=== PATIENT | female | born 1995 | race Caucasian/White ===

== ENCOUNTER 2017-04-10 10:49 | Emergency (ER) | payer BC, OTHER ==
--- NOTE | 2017-04-10 11:26 | ED ---
Abdominal Pain HPI - General Chief Complaint: Abdominal Pain Stated Complaint: constipation Time Seen by Provider: 04/10/17 11:08 Source: patient, RN notes reviewed Mode of arrival: ambulatory Limitations: no limitations - History of Present Illness Initial Comments: Patient is a 21-year-old female , presents to the emergency room for evaluation constipation. Patient states she is about 8 weeks . Patient states she has not followed up with [facility] yet. Patient states she hasn 't had a bowel movement in about a week. Patient states she's tried every over- the-counter remedy. Patient states she has drank magnesium citrate, prune juice , water, fiber with no relief of symptoms. Patient states she's getting nauseous because she is unable to have a bowel movement. Patient denies vaginal bleeding. Patient denies abdominal vaginal discharge. Patient denies pain or burning during urination, trouble urinating or blood in urine. Patient denies fevers or chills. Patient denies chest pain or shortness of breath. Patient denies any significant abdominal pain. - Related Data Home Medications Medication Instructions Recorded Confirmed EPINEPHrine (Auto Inject) [Epipen] 0.3 mg IM ONCE PRN 04/10/17 04/10/17 Ondansetron HCl [Zofran] 4 mg PO BID PRN 04/10/17 04/10/17 Allergies Allergy/AdvReac Type Severity Reaction Status Date / Time No Known Allergies Allergy Verified 04/10/17 10:58 Review of Systems ROS Statement: Those systems with pertinent positive or pertinent negative responses have been documented in the HPI. ROS Other: All systems not noted in ROS Statement are negative. Past Medical History Past Medical History: Syncope History of Any Multi-Drug Resistant Organisms: None Reported Past Surgical History: No Surgical Hx Reported Past Psychological History: No Psychological Hx Reported Smoking Status: Never smoker Past Alcohol Use History: None Reported Past Drug Use History: None Reported General Exam - General Exam Comments Initial Comments: Sitting in exam room, no distress. Limitations: no limitations General appearance: alert, in no apparent distress Head exam: Present: atraumatic, normocephalic, normal inspection Eye exam: Present: normal appearance ENT exam: Present: normal exam Neck exam: Present: normal inspection Respiratory exam: Present: normal lung sounds bilaterally. Absent: respiratory distress Cardiovascular Exam: Present: regular rate, normal rhythm, normal heart sounds GI/Abdominal exam: Present: soft, normal bowel sounds. Absent: distended, tenderness, guarding, rebound, rigid Extremities exam: Present: normal inspection Back exam: Present: normal inspection Neurological exam: Present: alert, oriented X3, CN II-XII intact, normal gait Psychiatric exam: Present: normal affect, normal mood Skin exam: Present: warm, dry, intact, normal color. Absent: rash Course Vital Signs 04/10/17 04/10/17 10:53 14:03 Temperature 98.5 F 99.1 F Pulse Rate 82 73 Respiratory 16 15 Rate Blood Pressure 117/59 109/53 O2 Sat by Pulse 98 99 Oximetry Medical Decision Making - Medical Decision Making Patient is a 21-year-old female presents emergency room for evaluation of constipation. Patient given soapsuds enema with slight relief of symptoms. Patient is . Patient states she's about 8 weeks . Ultrasound ordered since patient does not have a confirmed IUP yet. Ultrasound: Gestational age 8 weeks 1 day, I see no complicating process. DEON is 2017. Patient will be sent home on Mr. Youth. Patient states she is an appointment with [facility] on Tuesday. Return parameters discussed. Case discussed Dr. Quinn. - Lab Data Lab Results 04/10/17 04/10/17 Range/Units 12:16 12:16 Urine Color Light Yellow Urine Appearance Clear (Clear) Urine pH 8.0 (5.0-8.0) Ur Specific [place] 1.005 (1.001-1.035) Urine Protein Negative (Negative) Urine Glucose (UA) Negative (Negative) Urine Ketones Negative (Negative) Urine Blood Negative (Negative) Urine Nitrite Negative (Negative) Urine Bilirubin Negative (Negative) Urine Urobilinogen <2.0 (<2.0) mg/dL Ur Leukocyte Esterase Negative (Negative) Urine HCG, Qual Detected (Not Detectd) - Radiology Data Radiology results: report reviewed, image reviewed Disposition Clinical Impression: Constipation during Disposition: HOME SELF-CARE Condition: Good Instructions: Constipation (ED), High Fiber Diet (ED) Additional Instructions: Drink plenty of water. If GoLYTELY does not work, can try another dose of magnesium citrate. Please follow up with primary care provider in 1-2 days. If any new symptom arises or symptoms worsen, return to ER as soon as possible. Referrals: Galindo Riddle DO [Primary Care Provider] - 1-2 days Time of Disposition: 13:54
[2017-04-10 12:27] LABS: Appearance,Urine Clear (Clear); Bilirubin,Urine Negative (Negative); Glucose,Urine (UA) Negative (Negative); Ketones,Urine Negative (Negative); Leukocyte Esterase,Urine Negative (Negative); Nitrite,Urine Negative (Negative); Protein,Urine Negative (Negative); Specific Gravity,Urine 1.005 (1.001-1.035); UA Billing (MACRO vs. MICRO) CHEM; Urobilinogen,Urine <2.0 mg/dL (<2.0)
--- NOTE | 2017-04-10 13:35 | US ---
EXAMINATION TYPE: US OB <= 14 wk fetus DATE OF EXAM: 04/10/2017 COMPARISON: NONE CLINICAL HISTORY: no pain per pt just verifying . EXAM PERFORMED: Transabdominal (TA) EXAM MEASUREMENTS: GESTATIONAL AGE / DATING Physician Established: not established yet Dates by LMP: (8 weeks/2 days) LMP: 02/11/2017 EDC: 11/18/2017 Dates by First Scan: current scan is first scan Dates by Current Scan for: (8 weeks/1 days) EDC: 11/19/2017 MATERNAL ANATOMY Uterus: Appears wnl Right Ovary: Appears wnl Left Ovary: Appears wnl Post CDS / Adnexa: Appears wnl Presence of free fluid: Not seen at this time Presence of corpus luteal cyst: Not seen at this time Presence of subchorionic bleed: Not seen at this time GESTATION / SURVEY CRL: 1.72 cm (8 weeks/1 days) Yolk Sac (normal less than 6mm): 3 mm Heart Rate: 162 bpm Rhythm: Normal IUP: Viable IUP Date of LMP: 02/11/2017 Beta HcG (if available): positive urine IMPRESSION: The ultrasound gestational age is 8 weeks 1 day. I see no complicating process. The DEON is 11/18/2017.
[2017-04-10] MEDS ORDERED: PEG 3350-NA SULF,BICARB,CL/KCL 4,000 ML BOTTLE PO ONE (13:50)
[2017-04-10 14:04] VITALS: BP 109/53; PULSE 73; RESP 15; TEMP 99.1
== END 2017-04-10 14:07 | disposition home or self-care (01) ==
LOC: EC 10:49
DX: O99.611 Diseases of the digestive system complicating pregnancy, first trimester (principal); K59.00 Constipation, unspecified; Z3A.08 8 weeks gestation of pregnancy
CPT/HCPCS: 76801; 81003; 81025; 99284

== ENCOUNTER 2017-04-14 19:22 | Emergency (ER) | payer BC ==
[2017-04-14 19:29] VITALS: BP 119/77; PULSE 77; RESP 18; TEMP 98.6
--- NOTE | 2017-04-14 19:42 | ED ---
Abdominal Pain HPI - General Chief Complaint: Abdominal Pain Stated Complaint: constipation/nausea-revisit Time Seen by Provider: 04/14/17 19:34 Source: patient, RN notes reviewed Mode of arrival: ambulatory Limitations: no limitations - History of Present Illness Initial Comments: 21-year-old female presents to the emergency department with a chief complaint of constipation. Patient states that she is not having normal bowel movements. Patient states she was seen here a few days for similar complaint. Patient states she is about 10 weeks and is scheduled to have an on Tuesday. Patient states that she has taken [id number] stool softeners with no improvement. They did give her an enema a few days ago it did help with her symptoms but now they have recurred. Patient states that she hasn't had any fever chills with this. Patient any vaginal bleeding or lower abdominal cramping. Patient does have a normal ultrasound when she was here last time. Patient states that she was concerned due to her symptoms so she thought that she should be evaluated. Patient denies any recent fever, chills, shortness of breath, chest pain, back pain, nausea vomiting, numbness or tingling, dysuria or hematuria, diarrhea, headaches or visual changes, or any other current symptoms. - Related Data Home Medications Medication Instructions Recorded Confirmed EPINEPHrine (Auto Inject) [Epipen] 0.3 mg IM ONCE PRN 04/10/17 04/14/17 Allergies Allergy/AdvReac Type Severity Reaction Status Date / Time No Known Allergies Allergy Verified 04/14/17 19:40 Review of Systems ROS Statement: Those systems with pertinent positive or pertinent negative responses have been documented in the HPI. ROS Other: All systems not noted in ROS Statement are negative. Past Medical History Past Medical History: Syncope History of Any Multi-Drug Resistant Organisms: None Reported Past Surgical History: No Surgical Hx Reported Past Psychological History: No Psychological Hx Reported Smoking Status: Never smoker Past Alcohol Use History: None Reported Past Drug Use History: None Reported General Exam - General Exam Comments Initial Comments: General: The patient is awake and alert, in no distress, and does not appear acutely ill. Eye: Pupils are equal. Ears, nose, mouth and throat: There are moist mucous membranes. Neck: The neck is supple, there is no tenderness. Cardiovascular: There is a regular rate and rhythm. No murmur, rub or gallop is appreciated. Respiratory: Lungs are clear to auscultation, respirations are non-labored, breath sounds are equal. No wheezes, stridor, rales, or rhonchi. Gastrointestinal: Soft, non-distended, non-tender abdomen without masses or organomegaly noted. There is no rebound or guarding present. No CVA tenderness. Bowel sounds are unremarkable. Neurological: CN II-XII intact, There are no obvious motor or sensory deficits. Coordination appears grossly intact. Speech is normal. Skin: Skin is warm and dry and no rashes or lesions are noted. Psychiatric: Cooperative, appropriate mood & affect, normal judgment. Limitations: no limitations Course Vital Signs 04/14/17 19:22 Temperature 98.6 F Pulse Rate 77 Respiratory 18 Rate Blood Pressure 119/77 O2 Sat by Pulse 100 Oximetry Medical Decision Making - Medical Decision Making 21-year-old female presents to the emergency Department chief complaint of constipation. This time patient did have a bowel movement with her enema. She does have some improvement to her symptoms. This time we discussed continued [id number] medications at home. We discussed follow-up return parameters all patient's questions. She stated that she understood and she is in agreement with plan. This time she will be discharged home. Disposition Clinical Impression: Constipation during Disposition: HOME SELF-CARE Condition: Stable Instructions: High Fiber Diet (ED) Additional Instructions: Please use medication as discussed. Please follow up with family doctor if symptoms have not improved over the next two days. Please return to the emergency room if your symptoms increase or worsen or for any other concerns. Referrals: Galindo Riddle DO [Primary Care Provider] - 1-2 days Time of Disposition: 20:37
== END 2017-04-14 20:47 | disposition home or self-care (01) ==
LOC: EC 19:22
DX: O99.611 Diseases of the digestive system complicating pregnancy, first trimester (principal); K59.00 Constipation, unspecified; Z3A.10 10 weeks gestation of pregnancy
CPT/HCPCS: 99283

== ENCOUNTER → 2017-05-11 | Outpatient (CLI) | payer BC | END | disposition home or self-care (01) | LOC: LABWHC1 14:48 | PROVIDERS: ATTEND Internal Medicine | DX: O03.9 Complete or unspecified spontaneous abortion without complication (principal) | CPT/HCPCS: 36415; 84702 ==

== ENCOUNTER 2017-09-26 21:00 | Emergency (ER) | payer BC ==
--- NOTE | 2017-09-26 21:48 | ED ---
General Adult HPI - General Chief complaint: Vaginal Bleeding Stated complaint: 6 weeks /Bleeding Time Seen by Provider: 09/26/17 21:46 Source: patient Mode of arrival: ambulatory Limitations: no limitations - History of Present Illness Initial comments: Jazmyne is a 22-year-old female who presents to the emergency department today for evaluation of vaginal bleeding. Patient reports that her last menses was in early July, she reports that she did not have a menstrual cycle in August. She states that today she had sexual intercourse with her significant other, afterward she experienced a gush of blood from her vagina. Patient states she became concerned. Considering that her period was late she decided to take a test. She reports that she took 3 tests at home which were all positive she then decided to come to the emergency department for reevaluation. Patient denies any lightheadedness, palpitations, shortness of breath. She reports that her previous was terminated electively injected why of this year. She has no history of sexually transmitted infections and reports she has no concern for sexual transmitted infections. She reports she's been experiencing no dysuria, hematuria or pain with urination. She reports no pain with sexual intercourse. Denies any additional symptoms. - Related Data Home Medications Medication Instructions Recorded Confirmed Dextroamphetamine/Amphetamine 20 mg PO BID PRN 09/26/17 09/26/17 [Adderall] Allergies Allergy/AdvReac Type Severity Reaction Status Date / Time No Known Allergies Allergy Verified 09/26/17 21:57 Review of Systems ROS Statement: Those systems with pertinent positive or pertinent negative responses have been documented in the HPI. ROS Other: All systems not noted in ROS Statement are negative. Past Medical History Past Medical History: Syncope History of Any Multi-Drug Resistant Organisms: None Reported Past Surgical History: No Surgical Hx Reported Additional Past Surgical History / Comment(s): D&C March 2017 Past Psychological History: No Psychological Hx Reported Smoking Status: Never smoker Past Alcohol Use History: Occasional Past Drug Use History: None Reported General Exam Limitations: no limitations General appearance: alert, in no apparent distress Head exam: Present: atraumatic, normocephalic, normal inspection Eye exam: Present: normal appearance, PERRL, EOMI. Absent: scleral icterus, conjunctival injection, periorbital swelling ENT exam: Present: normal exam, mucous membranes moist Neck exam: Present: normal inspection. Absent: tenderness, meningismus, lymphadenopathy Respiratory exam: Present: normal lung sounds bilaterally. Absent: respiratory distress, wheezes, rales, rhonchi, stridor Cardiovascular Exam: Present: regular rate, normal rhythm, normal heart sounds. Absent: systolic murmur, diastolic murmur, rubs, gallop, clicks GI/Abdominal exam: Present: soft, normal bowel sounds. Absent: distended, tenderness, guarding, rebound, rigid External exam: Present: normal external exam Speculum exam: Present: vaginal bleeding (Dark blood in the vaginal vault, cervical os is closed). Absent: tissue, laceration By manual exam: Present: normal by manual exam Extremities exam: Present: normal inspection, full ROM, normal capillary refill. Absent: tenderness, pedal edema, joint swelling, calf tenderness Back exam: Present: normal inspection Neurological exam: Present: alert, oriented X3, CN II-XII intact Psychiatric exam: Present: normal affect, normal mood Skin exam: Present: warm, dry, intact, normal color. Absent: rash Course Vital Signs 09/26/17 09/26/17 21:07 23:37 Temperature 99.1 F 98.7 F Pulse Rate 99 92 Respiratory 16 18 Rate Blood Pressure 120/57 132/82 O2 Sat by Pulse 99 100 Oximetry Medical Decision Making - Medical Decision Making Patient was seen and evaluated, history is obtained from the patient Patient very early in now experiencing significant vaginal bleeding after intercourse Pelvic exam with dark blood in the vaginal vault, cervical os is closed labs and an ultrasound ordered Ultrasound reveals no gestational sac or pole, however they beta hCG is below the discriminatory zone Advised the patient that she needs close follow-up with an OB to continue trending her beta hCG, advised her that if beta hCG is increasing then she likely has a potentially viable . If beta hCG decreases than likely she has miscarried. Patient expressed understanding of this. I advised the patient to maintain pelvic rest including no vaginal intercourse until she is evaluated by OB. Patient expressed understanding of this as well. All questions pertaining care were answered to the best my ability patient was discharged home in stable condition. - Lab Data Result diagrams: 09/26/17 22:03 Lab Results 09/26/17 09/26/17 09/26/17 Range/Units 22:03 22:03 22:45 WBC 7.8 (3.8-10.6) k/uL RBC 4.03 (3.80-5.40) m/uL Hgb 12.1 (11.4-16.0) gm/dL Hct 38.8 (34.0-46.0) % MCV 96.5 (80.0-100.0) fL MCH 30.2 (25.0-35.0) pg MCHC 31.3 (31.0-37.0) g/dL RDW 13.8 (11.5-15.5) % Plt Count 279 (150-450) k/uL Neutrophils % 59 % Lymphocytes % 30 % Monocytes % 9 % Eosinophils % 1 % Basophils % 0 % Neutrophils # 4.6 (1.3-7.7) k/uL Lymphocytes # 2.3 (1.0-4.8) k/uL Monocytes # 0.7 (0-1.0) k/uL Eosinophils # 0.1 (0-0.7) k/uL Basophils # 0.0 (0-0.2) k/uL HCG, Quant 13.8 mIU/mL Urine Color Urine Appearance (Clear) Urine pH (5.0-8.0) Ur Specific [place] (1.001-1.035) Urine Protein (Negative) Urine Glucose (UA) (Negative) Urine Ketones (Negative) Urine Blood (Negative) Urine Nitrite (Negative) Urine Bilirubin (Negative) Urine Urobilinogen (<2.0) mg/dL Ur Leukocyte Esterase (Negative) Urine RBC (0-5) /hpf Urine WBC (0-5) /hpf Ur Squamous Epith Cells (0-4) /hpf Urine Bacteria (None) /hpf Urine Mucus (None) /hpf Blood Type O Positive Blood Type Recheck No 09/26/17 Range/Units 23:03 WBC (3.8-10.6) k/uL RBC (3.80-5.40) m/uL Hgb (11.4-16.0) gm/dL Hct (34.0-46.0) % MCV (80.0-100.0) fL MCH (25.0-35.0) pg MCHC (31.0-37.0) g/dL RDW (11.5-15.5) % Plt Count (150-450) k/uL Neutrophils % % Lymphocytes % % Monocytes % % Eosinophils % % Basophils % % Neutrophils # (1.3-7.7) k/uL Lymphocytes # (1.0-4.8) k/uL Monocytes # (0-1.0) k/uL Eosinophils # (0-0.7) k/uL Basophils # (0-0.2) k/uL HCG, Quant mIU/mL Urine Color Light Yellow Urine Appearance Clear (Clear) Urine pH 6.0 (5.0-8.0) Ur Specific [place] 1.005 (1.001-1.035) Urine Protein Negative (Negative) Urine Glucose (UA) Negative (Negative) Urine Ketones Negative (Negative) Urine Blood Large H (Negative) Urine Nitrite Negative (Negative) Urine Bilirubin Negative (Negative) Urine Urobilinogen <2.0 (<2.0) mg/dL Ur Leukocyte Esterase Negative (Negative) Urine RBC 71 H (0-5) /hpf Urine WBC 1 (0-5) /hpf Ur Squamous Epith Cells 1 (0-4) /hpf Urine Bacteria Rare H (None) /hpf Urine Mucus Rare H (None) /hpf Blood Type Blood Type Recheck Disposition Clinical Impression: Threatened Disposition: HOME SELF-CARE Condition: Good Instructions: Threatened Miscarriage (ED) Additional Instructions: Your hormone level today was 13 Referrals: Galindo Riddle DO [Primary Care Provider] - 1-2 days Time of Disposition: 23:26
[2017-09-26 22:34] LABS: Basophils % (A) 0 %; Eosinophils # (A) 0.1 k/uL (0-0.7); Eosinophils % (A) 1 %; HCT 38.8 % (34.0-46.0); HGB 12.1 gm/dL (11.4-16.0); Lymphocytes # (A) 2.3 k/uL (1.0-4.8); Lymphocytes % (A) 30 %; MCH 30.2 pg (25.0-35.0); MCHC 31.3 g/dL (31.0-37.0); MCV 96.5 fL (80.0-100.0); Mean Platelet Volume 7.8; Monocytes # (A) 0.7 k/uL (0-1.0); Monocytes % (A) 9 %; Neutrophils # (A) 4.6 k/uL (1.3-7.7); Neutrophils % (A) 59 %; Platelet Count 279 k/uL (150-450); RBC 4.03 m/uL (3.80-5.40); RDW 13.8 % (11.5-15.5); WBC 7.8 k/uL (3.8-10.6)
--- NOTE | 2017-09-26 22:43 | US ---
EXAMINATION TYPE: US OB <= 14 wk fetus DATE OF EXAM: 09/26/2017 COMPARISON: NONE CLINICAL HISTORY: vaginal bleeding. Pt states vaginal bleeding that started today EXAM PERFORMED: Transvaginal (TV) and Transabdominal (TA) EXAM MEASUREMENTS: GESTATIONAL AGE / DATING Physician Established: Not yet established Dates by LMP: (5 weeks/5 days) EDC: 05/24/2018 Dates by First Scan: No prior Dates by Current Scan for: No IUP seen MATERNAL ANATOMY Uterus: 7.3 x 4.0 x 4.0 cm Right Ovary: 2.7 x 1.9 x 3.2 cm Left Ovary: 3.1 X 2.0 X 1.9 CM Post CDS / Adnexa: WNL Presence of free fluid: No Presence of corpus luteal cyst: No GESTATION / SURVEY No IUP seen at this time, Endo thickness= 1.0 cm Date of LMP: 08/17/17 Beta HcG (if available): Not available at this time IMPRESSION: Negative pelvic sonogram. No adnexal mass or free fluid. No evidence of a gestational sac.
[2017-09-26 23:24] LABS: Appearance,Urine Clear (Clear); Bacteria,Urine Rare /hpf; Bilirubin,Urine Negative (Negative); Blood,Urine Large (Negative); Color,Urine Light Yellow; Glucose,Urine (UA) Negative (Negative); Ketones,Urine Negative (Negative); Leukocyte Esterase,Urine Negative (Negative); Mucus,Urine Rare /hpf; Nitrite,Urine Negative (Negative); Protein,Urine Negative (Negative); RBC,Urine 71 /hpf (0-5); Specific Gravity,Urine 1.005 (1.001-1.035); Squamous Epithelial Cell,Urine 1 /hpf (0-4); Urobilinogen,Urine <2.0 mg/dL (<2.0); WBC,Urine 1 /hpf (0-5)
[2017-09-27 00:20] VITALS: BP 132/82; PULSE 92; RESP 18; TEMP 98.7
== END 2017-09-26 23:39 | disposition home or self-care (01) ==
LOC: EC 21:00
DX: O20.0 Threatened abortion (principal); Z3A.01 Less than 8 weeks gestation of pregnancy
CPT/HCPCS: 36415; 76801; 76817; 81001; 84702; 85025; 86900; 86901; 87086; 99284

== ENCOUNTER → 2017-10-03 | Outpatient (CLI) | payer BC | END | disposition home or self-care (01) | LOC: LABWHC1 10:20 | PROVIDERS: ATTEND Obstetrics & Gynecology | DX: Z34.80 Encounter for supervision of other normal pregnancy, unspecified trimester (principal); Z3A.00 Weeks of gestation of pregnancy not specified | CPT/HCPCS: 36415; 84702 ==

== ENCOUNTER → 2017-12-21 | Outpatient (CLI) | payer BC ==
[2017-12-21 11:05] LABS: HCT 38.4 % (34.0-46.0); HGB 12.4 gm/dL (11.4-16.0); MCH 29.6 pg (25.0-35.0); MCHC 32.2 g/dL (31.0-37.0); MCV 91.7 fL (80.0-100.0); Mean Platelet Volume 7.8; Platelet Count 285 k/uL (150-450); RBC 4.19 m/uL (3.80-5.40); RDW 12.7 % (11.5-15.5); WBC 9.4 k/uL (3.8-10.6)
[2017-12-21 11:17] LABS: Glucose 83 mg/dL (74-99)
[2017-12-21 18:09] LABS: HIV AB P24 Non-Reactive (Non-Reactive); HIV P24 AG Non-Reactive (Non-Reactive)
[2017-12-22 04:30] LABS: Toxoplasma Antibody (IgG) <3.0 IU/mL (<7.2); Toxoplasma Antibody (IgM) <3.0 AU/mL (<8.0)
== END | disposition home or self-care (01) ==
LOC: LABWHC1 10:43
PROVIDERS: ATTEND Obstetrics & Gynecology
DX: Z34.80 Encounter for supervision of other normal pregnancy, unspecified trimester (principal); Z3A.00 Weeks of gestation of pregnancy not specified
CPT/HCPCS: 36415; 82565; 82947; 85027; 86592; 86762; 86777; 86778; 86850; 86900; 86901; 87340; 87390

== ENCOUNTER → 2018-04-14 | Outpatient (CLI) | payer BC ==
[2018-04-14 09:23] LABS: HCT 34.4 % (34.0-46.0); HGB 11.2 gm/dL (11.4-16.0); MCH 30.5 pg (25.0-35.0); MCHC 32.6 g/dL (31.0-37.0); MCV 93.4 fL (80.0-100.0); Mean Platelet Volume 7.9; Platelet Count 233 k/uL (150-450); RBC 3.68 m/uL (3.80-5.40); RDW 13.2 % (11.5-15.5); WBC 10.6 k/uL (3.8-10.6)
== END | disposition home or self-care (01) ==
LOC: LABWHC1 08:04
PROVIDERS: ATTEND Obstetrics & Gynecology
DX: Z34.82 Encounter for supervision of other normal pregnancy, second trimester (principal)
CPT/HCPCS: 36415; 82950; 85027

== ENCOUNTER 2018-05-13 20:05 | Outpatient (CLI) | payer BC ==
[2018-05-13 21:17] VITALS: BP 120/62; PULSE 73; RESP 16; TEMP 98.4
--- NOTE | 2018-05-14 07:50 | P.MSEPDOC ---
Presenting Problems - Arrival Data Date of Arrival on Unit: 05/13/18 Time of Arrival on Unit: 20:00 Mode of Transport: Ambulatory - Complaint OB-Reason for Admission/Chief Complaint: Decreased Movement Medical History - Information : 3 Para: 0 Term: 0 : 0 Abortions: Spontaneous or Elective: 2 Number of Living Children: 0 - Gestational Age Gestational Age by DEON (wks/days): 28 Weeks and 2 Days Review of Systems - Review of Systems Constitutional: No problems Breast: No problems ENT: No problems Cardiovascular: No problems Respiratory: No problems Gastrointestinal: No problems Genitourinary: No problems Musculoskeletal: No problems Neurological: No problems Skin: No problems Vital Signs - Temperature Temperature: 98.4 F Temperature Source: Oral - Pulse Right Pulse Rate: 73 Pulse Assessment Method: Automatic Cuff - Respirations Respiratory Rate: 16 - Blood Pressure Right Arm Blood Pressure: 120/62 Blood Pressure Mean: 81 Blood Pressure Source: Automatic Cuff Medical Screen Scoring (Pre) - Cervical Exam Dilation: Exam Deferred Effacement: Exam Deferred - Uterine Contractions Frequency: N/A Duration: N/A Intensity: N/A - Maternal Vital Signs Maternal Temperature: N/A Maternal Blood Pressure: N/A Signs of Preeclampsia: N/A Maternal Respirations: N/A - Assessment Baseline FHR: 130 Heart Rate - NICHD Category: Category I (Normal) = 0 NST: Reactive Position: N/A - Total Score Total Score (Pre): 0 - Level of Risk Level of Risk: Low (0-5) Physician Notification (Pre) - Physician Notified Physician Notified Date: 05/13/18 Physician Notified Time: 20:41 Physician/Practitioner Notifed:: Dr Hutchison - Notification Comment Comment: reported on decreased movement and periods of cramping throughout the day. reported on reactive nst, +fm per rn and pt, no cntrx noted per pt/toco/palpation. no bleeding or leaking, pt feeling reassured to go home. orders to d/c home with instructions. Disposition - Disposition OB Disposition: Discharge to home Discharge Date: 05/13/18 Discharge Time: 20:45 I agree with the RN Medical Screening Exam: Yes Risk & Benefit of care provided described in d/c instruction: Yes Diagnosis: DECREASED MOVEMENTS, THIRD TRIMESTER, FETUS 1
== END 2018-05-13 20:45 | disposition home or self-care (01) ==
LOC: FBPOP 20:05
PROVIDERS: ATTEND Obstetrics & Gynecology
DX: O36.8130 Decreased fetal movements, third trimester, not applicable or unspecified (principal); Z3A.28 28 weeks gestation of pregnancy
CPT/HCPCS: 59025; 99213

== ENCOUNTER 2018-08-02 17:00 | Inpatient (IN) | payer BC ==
[2018-08-03] MEDS ORDERED: OXYTOCIN 10 UNIT/ML 1 ML VIAL IM PRN (06:09)
[2018-08-03] MEDS ORDERED: OXYTOCIN 20 UNITS/1000 ML NS 1,000 ML IV SCH ×2 (06:09→19:03)
[2018-08-03] MEDS ORDERED: LIDOCAINE 0.5% (PF) 5 MG/ML (50 ML SDV) SQ PRN (06:09)
[2018-08-03] MEDS ORDERED: METHYLERGONOVINE 0.2 MG/ML 1 ML AMP IM PRN (06:09)
[2018-08-03] MEDS ORDERED: TERBUTALINE 1 MG/ML VIAL SQ PRN (06:09)
[2018-08-03] MEDS ORDERED: CARBOPROST TROMETHAMINE 250 MCG/ML 1 ML AMP IM PRN (06:09)
--- NOTE | 2018-08-03 06:12 | P.HPOB ---
History of Present Illness H&P Date: 08/03/18 Chief Complaint: Elective induction of labor. This patient is a pleasant 23-year-old 3 para 0 female estimated date of confinement 08/03/2018 estimated gestational age 40-0/7 weeks who presents to labor and delivery for requested induction of labor. Patient's care has been uncomplicated. Review of Systems Gastrointestinal: Reports heartburn Genitourinary: Reports Menstruation: Reports amenorrhea Past Medical History Past Medical History: Syncope History of Any Multi-Drug Resistant Organisms: None Reported Past Surgical History: No Surgical Hx Reported Additional Past Surgical History / Comment(s): D&C March 2017 Past Anesthesia/Blood Transfusion Reactions: No Reported Reaction Smoking Status: Never smoker Past Alcohol Use History: None Reported Past Drug Use History: None Reported Medications and Allergies Home Medications Medication Instructions Recorded Confirmed Type Pnv 11/Iron Fum/Folic Acid/Om3 1 each PO DAILY 05/13/18 05/13/18 History [Virt-Niraj Dha Softgel] Allergies Allergy/AdvReac Type Severity Reaction Status Date / Time No Known Allergies Allergy Verified 05/13/18 20:09 Exam - OBG Physical Exam Abdomen: bowel sounds normal, no diffuse tenderness, no bruit present, no guarding noted, no hepatomegaly, no splenomegaly, no mass Vulva: both: normal Vagina: normal moisture, no discharge Cervix: no lesion (Cervix was 1-2 cm dilated in the office previously.), no discharge Uterus: enlarged (Fundal height is consistent with a term ) Results blood work is O positive, rubella immune, RPR nonreactive, HIV nonreactive, hepatitis B negative, Glucola was normal, group B strep was negative, ultrasounds have been normal Assessment and Plan Assessment: This is a pleasant 23-year-old 3 para 0 female 40-0/7 weeks gestation admitted to labor and delivery for requested elective induction of labor. Plan is induction of labor per protocol and anticipate vaginal delivery. (1) Third trimester Current Visit: Yes Status: Acute Code(s): Z34.93 - ENCNTR FOR SUPRVSN OF NORMAL PREG, UNSP, THIRD TRIMESTER SNOMED Code(s): 64853907 (2) Elective induction of labor planned Current Visit: Yes Status: Acute Code(s): URD3301 - SNOMED Code(s): 797160082
[2018-08-03] MEDS: LACTATED RINGERS 1,000 ML IV SCH ×3 (06:29→15:46)
[2018-08-03 06:43] VITALS: BMI 25.4
[2018-08-03 07:04] LABS: Basophils % (A) 0 %; Eosinophils % (A) 1 %; HCT 33.8 % (34.0-46.0); Lymphocytes # (A) 2.2 k/uL (1.0-4.8); Lymphocytes % (A) 25 %; MCH 29.2 pg (25.0-35.0); MCHC 32.5 g/dL (31.0-37.0); MCV 89.9 fL (80.0-100.0); Mean Platelet Volume 8.2; Monocytes # (A) 0.5 k/uL (0-1.0); Monocytes % (A) 6 %; Neutrophils # (A) 5.7 k/uL (1.3-7.7); Neutrophils % (A) 66 %; Platelet Count 235 k/uL (150-450); RBC 3.76 m/uL (3.80-5.40); RDW 13.1 % (11.5-15.5); WBC 8.7 k/uL (3.8-10.6)
[2018-08-03] MEDS ORDERED: BUTORPHANOL 1 MG/ML 1 ML VIAL IV PRN (10:32)
[2018-08-03] MEDS ORDERED: ROPIVACAINE 100 MG, fentaNYL (PF) 200 MCG in SODIUM CHLORIDE 0.9% 76 ML EPIDURAL ONE (12:16)
[2018-08-03] MEDS ORDERED: AMPICILLIN 2,000 MG in SODIUM CHLORIDE 0.9% 100 ML IVPB STA (17:41)
[2018-08-03] MEDS ORDERED: BENZOCAINE/MENTHOL SPRAY 1 GM/SPRAY AEROSOL TOPICAL PRN (19:03)
[2018-08-03] MEDS ORDERED: WITCH HAZEL 1 EACH MED..PAD TOPICAL PRN (19:03)
[2018-08-03] MEDS ORDERED: diphenhydrAMINE 25 MG CAP PO PRN (19:03)
[2018-08-03] MEDS ORDERED: diphenhydrAMINE 50 MG/ML 1 ML VIAL IVP PRN (19:03)
[2018-08-03] MEDS ORDERED: LANOLIN CREAM 5 GM TUBE TOPICAL PRN (19:03)
[2018-08-03] MEDS ORDERED: SIMETHICONE 80 MG CHEWABLE PO PRN (19:03)
[2018-08-03] MEDS ORDERED: BISACODYL 10 MG SUPP RECTAL PRN (19:03)
[2018-08-03] MEDS ORDERED: HYDROCORTISONE 2.5% RECTAL CREAM 30 GM TUBE RECTAL PRN (19:03)
[2018-08-03] MEDS ORDERED: ACETAMINOPHEN TAB 325 MG TAB PO PRN (19:03)
[2018-08-03] MEDS ORDERED: ZOLPIDEM 5 MG TAB PO PRN (19:03)
--- NOTE | 2018-08-03 19:11 | P.PROBDLV ---
Vaginal Delivery Note - . Vaginal Delivery Note: Normal vaginal delivery viable male Apgars 9 and 9 delivery time is 1843 hrs. Please see dictated H&P for intimate details of this patient's admission. Brief summary this is a pleasant 23-year-old 3 para 0 female 40-0/7 weeks gestation is admitted to labor and delivery for elective induction of labor. On admission patient is 1-2 cm dilated has artificial rupture membranes for clear fluid. Patient's labor is induced with Pitocin per protocol. Patient 's labor progresses she does get an epidural for pain control. Patient thereafter does progress quickly pushes the head to the perineum. Patient pushes for approximately 20 minutes. Posterior perineum is supported we have controlled delivery of the 's head over the intact perineum. Mouth and nares are bulb suctioned. There is no evidence of a nuchal cord. The anterior shoulder then spontaneously delivers and then the posterior shoulder and rest this infant's body. This is a vigorous viable male Apgars are 9 and 9 delivery time is 1843 hrs. After delivery of the the umbilical cords doubly clamped and cut appears to be trivascular. This is done after the cord is done pulsating. Placenta spontaneously delivered intact. Inspection of the perineum shows a first-degree posterior vaginal laceration and a small left labial laceration which were repaired with 3-0 Vicryl usual fashion excellent reapproximation is noted. Cord blood was obtained due to O positive status. There are no complications. and mother stable delivery room. All counts correct 3.
[2018-08-03] MEDS: IBUPROFEN 600 MG TAB PO PRN (19:17)
[2018-08-03] MEDS ORDERED: SENNOSIDES-DOCUSATE SODIUM 1 EACH TAB PO SCH (20:00)
--- NOTE | 2018-08-04 05:50 | P.PNOBGVD ---
Subjective - Subjective Patient reports: Reports appetite normal, Reports voiding normally, Reports pain well controlled, Reports ambulating normally : doing well Objective - Latest Vital Signs Latest vital signs: Vital Signs Temp Pulse Resp BP Pulse Ox 08/04/18 04:00 98.5 F 73 16 114/59 08/04/18 00:00 98.4 F 81 16 109/64 08/03/18 21:05 71 16 126/63 08/03/18 20:35 85 16 121/58 08/03/18 20:05 98.4 F 79 16 125/61 08/03/18 19:50 91 16 117/64 08/03/18 19:35 100 16 120/64 08/03/18 19:20 98.5 F 100 16 123/71 08/03/18 19:05 99.6 F 108 H 16 120/70 08/03/18 06:08 97.2 F L 87 16 127/77 99 Intake and Output 08/03/18 08/03/18 08/04/18 14:59 22:59 06:59 Intake Total 36.45 200 Output Total 100 Balance -63.55 200 Intake: Intake, IV Titration 36.45 Amount Oxytocin 20 Units/1000 ml 36.45 Ns 1,000 ml @ 1 MILLIUNIT/MIN 3 mls/hr IV .Q24H [facility] Rx#:[id number] Oral 200 Output: Estimated Blood Loss 100 Other: # Voids 1 - Exam Lungs: bilateral: normal Chest: Normal S1, Normal S2 Extremities: Present: normal Abdomen: Present: normal appearance, soft Uterus: Present: normal, firm - Labs Labs: Abnormal Lab Results - Last 24 Hours (Table) 08/03/18 Range/Units 06:30 RBC 3.76 L (3.80-5.40) m/uL Hgb 11.0 L (11.4-16.0) gm/dL Hct 33.8 L (34.0-46.0) % Assessment and Plan Assessment: day #1. Patient is resting without complaints. Desires to go home. Vital signs are stable she's afebrile. Uterus is firm nontender she's having normal lochia. My impression is a normal course. Plan is to continue routine care discharge home later today. (1) Third trimester Current Visit: Yes Status: Acute Code(s): Z34.93 - ENCNTR FOR SUPRVSN OF NORMAL PREG, UNSP, THIRD TRIMESTER SNOMED Code(s): 84033022 (2) Elective induction of labor planned Current Visit: Yes Status: Acute Code(s): YES3313 - SNOMED Code(s): 217324744
--- NOTE | 2018-08-04 05:54 | P.DS ---
Providers Date of admission: 08/03/18 05:55 Expected date of discharge: 08/04/18 Attending physician: Jaycob Hutchison Primary care physician: Galindo Riddle - Discharge Diagnosis(es) (1) Third trimester Current Visit: Yes Status: Acute (2) Elective induction of labor planned Current Visit: Yes Status: Acute Hospital Course: Please see dictated H&P for intimate details of this patient's admission. Brief summary this is a pleasant 23-year-old 3 para 0 female 40-0/7 weeks gestation admitted to labor and delivery for elective induction of labor. Patient is admitted undergoes uncomplicated induction of labor. day 1 patient's stable and wishes to go home. Patient's discharge home follow up with me in 6 weeks. Procedures: Induction of labor and normal vaginal delivery Patient Condition at Discharge: Good Plan - Discharge Summary New Discharge Prescriptions: New Ibuprofen [Motrin] 600 mg PO Q6HR PRN #40 tab PRN Reason: Mild Pain Or Fever >= 100.5 No Action Pnv 11/Iron Fum/Folic Acid/Om3 [Virt-Niraj Dha Softgel] 1 each PO DAILY Discharge Medication List Pnv 11/Iron Fum/Folic Acid/Om3 [Virt-Niraj Dha Softgel] 1 each PO DAILY 05/13/18 [History] Ibuprofen [Motrin] 600 mg PO Q6HR PRN #40 tab 08/04/18 [Rx] Follow up Appointment(s)/Referral(s): Jaycob Hutchison MD [STAFF PHYSICIAN] - 09/15/18 9:30 am Patient Instructions/Handouts: Vaginal Delivery (DC) Activity/Diet/Wound Care/Special Instructions: No intercourse or anything per vagina for 6 weeks. Please call if any fever, chills, excessive vaginal bleeding, and/or abdominal pain. Discharge Disposition: HOME SELF-CARE
[2018-08-04] MEDS: IBUPROFEN 600 MG TAB PO PRN ×2 (06:56→13:52)
[2018-08-04 17:50] VITALS: BP 114/76; PULSE 74; RESP 16; TEMP 98
== END 2018-08-04 20:00 | disposition home or self-care (01) | DRG 807 ==
LOC: 4FBP 08-03 05:55
PROVIDERS: ADMIT Obstetrics & Gynecology; ATTEND Obstetrics & Gynecology
PROC: 10E0XZZ Delivery of Products of Conception, External Approach (ICD-10-PCS; principal; 2018-08-03)
PROC: 10907ZC Drainage of Amniotic Fluid, Therapeutic from Products of Conception, Via Natural or Artificial Opening (ICD-10-PCS; 2018-08-03)
PROC: 3E033VJ Introduction of Other Hormone into Peripheral Vein, Percutaneous Approach (ICD-10-PCS; 2018-08-03)
PROC: 0HQ9XZZ Repair Perineum Skin, External Approach (ICD-10-PCS; 2018-08-03)
PROC: 00HU33Z Insertion of Infusion Device into Spinal Canal, Percutaneous Approach (ICD-10-PCS; 2018-08-03)
PROC: 3E0R3BZ Introduction of Anesthetic Agent into Spinal Canal, Percutaneous Approach (ICD-10-PCS; 2018-08-03)
DX: O99.62 Diseases of the digestive system complicating childbirth (principal); Z37.0 Single live birth; O70.0 First degree perineal laceration during delivery; Z3A.40 40 weeks gestation of pregnancy; K21.9 Gastro-esophageal reflux disease without esophagitis
CPT/HCPCS: 85025; 86850; 86900; 86901

== ENCOUNTER → 2019-01-24 | Outpatient (CLI) | payer BC, MEDICAID | END | disposition home or self-care (01) | LOC: LABWHC1 12:04 | PROVIDERS: ATTEND Internal Medicine Critical Care Medicine | DX: J67.9 Hypersensitivity pneumonitis due to unspecified organic dust (principal) | CPT/HCPCS: 36415; 86001; 86606; 86609 ==

== ENCOUNTER → 2019-03-03 | Outpatient (CLI) | payer BC, MEDICAID | END | disposition home or self-care (01) | LOC: LABWHC1 10:31 | PROVIDERS: ATTEND Obstetrics & Gynecology | DX: O03.9 Complete or unspecified spontaneous abortion without complication (principal) | CPT/HCPCS: 36415; 84702 ==

== ENCOUNTER → 2020-03-10 | Outpatient (CLI) | payer MEDICAID, BC ==
--- NOTE | 2020-03-11 10:02 | USB ---
Reason for exam: clinical finding. History: Family history of breast cancer in maternal grandmother. Physical Findings: Nurse did not find any significant physical abnormalities on exam. US Breast BILAT Right complete breast ultrasound includes all four quadrants, the retroareolar region and axilla. Finding demonstrates no cystic or solid lesion seen. Left complete breast ultrasound includes all four quadrants, the retroareolar region and axilla. Finding demonstrates no cystic or solid lesion seen. Extra imaging was performed at the left axilla, site of pain. No lymphadenopathy or other abnormality seen. These results were verbally communicated with the patient and result sheet given to the patient on 03/10/20. ASSESSMENT: Benign, BI-RAD 2 RECOMMENDATION: Routine screening mammogram of both breasts at age 40. Unless there is a clinical indication to start sooner. Manage on a clinical basis with regard to left axillary and left arm pain.
== END | disposition home or self-care (01) ==
LOC: RADMAMWWP 10:00
PROVIDERS: ATTEND Family Medicine
DX: M79.629 Pain in unspecified upper arm (principal)

== ENCOUNTER → 2021-05-21 | Outpatient (CLI) | payer MEDICAID, BC ==
[2021-05-21 19:15] LABS: Basophils # (A) 0.03 X 10*3/uL (0.00-0.10); Basophils % (A) 0.4 %; Eosinophils # (A) 0.12 X 10*3/uL (0.04-0.35); Eosinophils % (A) 1.6 %; HCT 40.6 % (37.2-46.3); HGB 13.1 g/dL (12.0-15.0); Lymphocytes # (A) 2.17 X 10*3/uL (0.90-5.00); Lymphocytes % (A) 28.3 %; MCH 30.3 pg (27.0-32.0); MCHC 32.3 g/dL (32.0-37.0); MCV 93.8 fL (80.0-97.0); Mean Platelet Volume 12.1 fL (9.5-12.2); Monocytes # (A) 0.74 X 10*3/uL (0.20-1.00); Monocytes % (A) 9.7 %; Neutrophils # (A) 4.57 X 10*3/uL (1.80-7.70); Neutrophils % (A) 59.6 %; Platelet Count 254 X 10*3/uL (140-440); RBC 4.33 X 10*6/uL (4.10-5.20); RDW 12.5 % (11.5-14.5); WBC 7.66 X 10*3/uL (4.50-10.00)
[2021-05-21 20:18] LABS: African American GFR (CKD) 145.8 (60.0-200.0); Albumin 4.8 g/dL (3.80-4.90); Albumin/Globulin Ratio 1.92 (1.60-3.17); Anion Gap 10.2 mmol/L (4.00-12.00); BUN/Creat Ratio 16.67 Ratio (12.00-20.00); Calcium 9.4 mg/dL (8.7-10.3); Carbon Dioxide 21.8 mmol/L (21.6-31.8); Globulin 2.5 g/dL (1.6-3.3); Non-African American GFR(CKD) 125.8 (60.0-200.0); Potassium 4.2 mmol/L (3.5-5.5); Total Bilirubin 0.4 mg/dL (0.2-1.2); Total Protein 7.3 g/dL (6.2-8.2)
[2021-05-21 20:26] LABS: Ferritin 26.3 ng/mL (10.0-291.0)
== END | disposition home or self-care (01) ==
LOC: LABWHC1 11:02
PROVIDERS: ATTEND Internal Medicine
DX: E83.19 Other disorders of iron metabolism (principal)
CPT/HCPCS: 36415; 80053; 82728; 85025

== ENCOUNTER → 2022-06-24 | Outpatient (CLI) | payer MEDICAID ==
--- NOTE | 2022-06-24 16:54 | US ---
EXAMINATION TYPE: US thyroid st tissue head/neck DATE OF EXAM: 06/24/2022 COMPARISON: NONE CLINICAL HISTORY: R59.9 swollen gland. Palpable lump left neck Left neck submandibular - 2.1 x 0.5 x 0.9cm lymph node seen at patient's palpable area IMPRESSION: 1. Palpable region correlates with a left submandibular lymph node. Follow-up can be performed as cli nically indicated.
== END | disposition home or self-care (01) ==
LOC: RADUSWWP 12:57
PROVIDERS: ATTEND Internal Medicine
DX: R59.9 Enlarged lymph nodes, unspecified (principal)
CPT/HCPCS: 76536

== ENCOUNTER → 2022-08-26 | Outpatient (CLI) | payer MEDICAID ==
--- NOTE | 2022-08-27 12:33 | US ---
EXAMINATION TYPE: US thyroid st tissue head/neck DATE OF EXAM: 08/26/2022 COMPARISON: US CLINICAL HISTORY: R22.1 SWELLING, MASS AND LUMP. Swelling/mass that she noticed in April. Patient do esn't really feel either of the area anymore. Scanned left lateral neck, the parotid area, and the submandibular area. Hypoechoic area with hyperechoic center seen within the left lateral neck: 1.1 x 0.9 x 0.5 cm. Hypoechoic area with hyperechoic area seen within the submandibular are: 2.1 x 1.2 x 0.6 cm. IMPRESSION: 1. Small of multiple lymph nodes present within the soft tissues of the neck. Abnormal finding is not evident.
== END | disposition home or self-care (01) ==
LOC: RADUSWWP 16:19
PROVIDERS: ATTEND Otolaryngology
DX: R59.0 Localized enlarged lymph nodes (principal)
CPT/HCPCS: 76536

== ENCOUNTER → 2022-09-13 | Outpatient (CLI) | payer MEDICAID ==
--- NOTE | 2022-09-14 12:41 | CT ---
EXAMINATION TYPE: CT soft tissue neck w con DATE OF EXAM: 09/13/2022 COMPARISON: None HISTORY: enlarged lymph nodes CT DLP: 279.1 mGycm CONTRAST: Patient injected with 70cc mL of Isovue 300. TECHNIQUE: Axial images at 3 mm thick sections. Reconstructed images in the coronal plane and sagitt al plane are reviewed. FINDINGS: Limited CT sections are obtained the lung apices. The lung apices appear clear. CT neck: The torus tubarius and fossa of Rosenmuller are normal. Costumed Character spaces are normal. Para nasal sinuses and mastoid air cells are clear. Parotid glands appear normal and symmetrical. Submandibular glands, are normal. Parapharyngeal spac es are normal. No suspicious adenopathy is evident. No suspicious submental lymph nodes. Submandibular regions are normal. Parapharyngeal carotid sheath and jugular digastric regions are normal without enlarged lymph adenopathy. No enlarged posterior triangle lymphadenopathy is evident. The hypopharynx appears within normal limits. Vocal cord level appear symmetrical. Thyroid as visualized is normal. Cervical kyphosis is present. This can be positional. Disc height and vertebral body heights are pres erved. IMPRESSIONS: 1. No suspicious enlarged lymphadenopathy is evident. There are scattered small lymph nodes present.
== END | disposition home or self-care (01) ==
LOC: RADCTMAIN 12:31
PROVIDERS: ATTEND Otolaryngology
DX: R22.1 Localized swelling, mass and lump, neck (principal)
CPT/HCPCS: 70491; Q9967

== ENCOUNTER 2022-10-06 13:00 | Outpatient (CLI) | payer MEDICAID ==
[2022-10-06 13:48] VITALS: RESP 16; TEMP 98.3
[2022-10-06 14:30] VITALS: BP 127/75; PULSE 94
--- NOTE | 2022-10-06 14:37 | US ---
ULTRASOUND GUIDED FNA NECK LYMPH NODE BIOPSY: CLINICAL HISTORY: Left neck lymph node FINDINGS: The procedure was explained to the patient. The risks, complications, benefits and alternatives were discussed and any questions were answered. Informed consent was obtained. Patient was placed supin e on the ultrasound table and prepped and draped in the usual sterile fashion. Utilizing a 25 gauge needle, repeat passes were made into the question of left neck lymph node. Variant a single 18-gauge core biopsy sample was also obtained. Patient was stable throughout the procedure. Pathology is pending. All elements of maximal barrier technique were utilized. IMPRESSION: 1. Successful ultrasound guided FNA attempted and core biopsy left submandibular lymph node.
== END 2022-10-06 14:20 | disposition home or self-care (01) ==
LOC: RADPROMAIN 13:00
PROVIDERS: ATTEND Otolaryngology
DX: R22.1 Localized swelling, mass and lump, neck (principal)
CPT/HCPCS: 10005; 38505; 76942; 88173; 88305

== ENCOUNTER → 2023-05-05 | Outpatient (CLI) | payer MEDICAID ==
--- NOTE | 2023-05-05 13:12 | US ---
EXAMINATION TYPE: US abdomen complete DATE OF EXAM: 05/05/2023 COMPARISON: NONE CLINICAL INDICATION: Female, 28 years old with history of R10.9 UNSPECIFIED ABDOMINAL PAIN; LEFT side d pain TECHNIQUE: Multiple sonographic images of the abdomen are obtained. FINDINGS: EXAM MEASUREMENTS: Liver Length: 13.8 cm Gallbladder Wall: 0.2 cm CBD: 0.4 cm Spleen: 9.5 cm Right Kidney: 9.7 x 4.6 x 5.0 cm Left Kidney: 10.9 x 4.9 x 4.1 cm DIABETIC EDUCATOR NOTES: Technical limitations due to large amount of overlying bowel gas Pancreas: Obscured by bowel gas Liver: appears wnl Gallbladder: no evidence of stones Evidence for sonographic Mcmahon's sign: no CBD: appears wnl Spleen: wnl Right Kidney: no evidence of hydronephrosis Left Kidney: ??dilated renal pelvis Upper IVC: wnl Abd Aorta: visualized portions appear wnl The pancreas is obscured by overlying bowel gas. Liver appears unremarkable without focal lesion. No cholelithiasis, wall thickening, or pericholecystic fluid. 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 The intrahepatic portion of the IVC and proximal abdominal aorta are within normal limits. Common bile duct is unremarkable. The spleen is unremarkable. No hydronephrosis involving the right kidney. No nephrolithiasis or solid mass bilaterally. Mild prominence of the left renal pelvis withou t overt hydronephrosis. IMPRESSION: Limited examination due to overlying bowel gas. Mild prominence of the left renal pelvis without overt hydronephrosis.
== END | disposition home or self-care (01) ==
LOC: RADUSWWP 12:22
PROVIDERS: ATTEND Internal Medicine
DX: R10.9 Unspecified abdominal pain (principal)
CPT/HCPCS: 76700

== ENCOUNTER → 2023-10-14 | Outpatient (CLI) | payer MEDICAID ==
[~2023-10-14] MED LIST: FUROSEMIDE 10 MG/ML 2 ML VIAL IV ONE
--- NOTE | 2023-10-14 14:56 | NM ---
EXAMINATION TYPE: NM lasix renogram DATE OF EXAM: 10/14/2023 COMPARISON: Ultrasound abdomen May 05, 2023 CLINICAL INDICATION: Female, 28 years old with history of N13.30 UNSPECIFIED HYDRONEPHROSIS; Following administration of 9.7 mCi Tc 99m MAG3 with 20mg Lasix. Immediate images post injection FINDINGS: Left: 56.1 %. Right: 43.9 %. Max renal flow left: 2.25 minutes. Max renal flow right: 2.5 minutes. Satisfactory accumulation of radiotracer within both renal collecting systems. After the administrati on of Lasix, there is prompt excretion from both collecting systems. T 1/2 left: 13.6 minutes . T 1/2 right: 12.2 minutes . IMPRESSION: This study is within normal limits. Symmetric cortical medullary uptake and excretion fro m both kidneys is present.
== END | disposition home or self-care (01) ==
LOC: RADNMMAIN 13:01
PROVIDERS: ATTEND Urology
DX: N13.30 Unspecified hydronephrosis (principal)
CPT/HCPCS: 78708; A9562

== ENCOUNTER 2023-11-30 13:21 | Emergency (ER) | payer MEDICAID ==
--- NOTE | 2023-11-30 13:45 | ED ---
Nausea/Vomiting/Diarrhea HPI - General Source: patient, RN notes reviewed Mode of arrival: ambulatory Limitations: no limitations - History of Present Illness MD complaint: nausea, vomiting <Kena Messina - Last Filed: 11/30/23 13:42> - General Source: RN notes reviewed, old records reviewed Mode of arrival: ambulatory Limitations: no limitations - History of Present Illness MD complaint: nausea, vomiting -: days(s) Description of Diarrhea: water Location: diffuse Radiation: none Severity: mild Severity scale (1-10): 2 Quality: stabbing, aching Consistency: intermittent Improves with: none <Bryn Maravilla - Last Filed: 12/08/23 01:33> - General Chief complaint: Nausea/Vomiting/Diarrhea Stated complaint: NV, 7wks Time Seen by Provider: 11/30/23 13:42 - History of Present Illness Initial comments: Quick Note: This is a 28 year old female who presents to the emergency [facility] for nausea and vomiting in . Patient is 7 weeks and . States that for the last week, she has been unable to keep anything down. She previously saw Dr. Hutchison, however states that he is not taking any new patients at this time, and she was unable to get an appointment at [facility] until next month. Her PCP prescribed her with Diclegis, which was not effective. She then borrowed some Zofran from a friend, which was only moderately helpful. Denies any abdominal pain or vaginal bleeding. (Kena Messina) This is a 28-year-old female to the ER for evaluation of nausea vomiting in (Bryn Maravilla) - Related Data Home Medications Medication Instructions Recorded Confirmed No Known Home Medications 09/07/22 10/06/22 Allergies Allergy/AdvReac Type Severity Reaction Status Date / Time bee venom protein (honey bee) Allergy Anaphylaxis Verified 11/30/23 14:03 Review of Systems ROS Other: All systems not noted in ROS Statement are negative. <Kean Messina - Last Filed: 11/30/23 13:42> ROS Other: All systems not noted in ROS Statement are negative. <Bryn Maravilla - Last Filed: 12/08/23 01:33> ROS Statement: Those systems with pertinent positive or pertinent negative responses have been documented in the HPI. Past Medical History Past Medical History: Syncope Additional Past Medical History / Comment(s): enlarged lymph nodes History of Any Multi-Drug Resistant Organisms: None Reported Past Surgical History: No Surgical Hx Reported Additional Past Surgical History / Comment(s): D&C March 2017, wisdom teeth removed Past Anesthesia/Blood Transfusion Reactions: No Reported Reaction Past Psychological History: Anxiety Smoking Status: Never smoker Past Alcohol Use History: None Reported Past Drug Use History: None Reported - Past Family History Mother Family Medical History: Cancer Additional Family Medical History / Comment(s): CML <Kena Messina - Last Filed: 11/30/23 13:42> General Exam <Kena Messina - Last Filed: 11/30/23 13:42> General appearance: alert, in no apparent distress, anxious Head exam: Present: atraumatic, normocephalic, normal inspection Eye exam: Present: normal appearance, PERRL, EOMI. Absent: scleral icterus, conjunctival injection, periorbital swelling ENT exam: Present: normal exam, mucous membranes moist Neck exam: Present: normal inspection. Absent: tenderness, meningismus, lymphadenopathy Respiratory exam: Present: normal lung sounds bilaterally. Absent: respiratory distress, wheezes, rales, rhonchi, stridor Cardiovascular Exam: Present: regular rate, normal rhythm, normal heart sounds. Absent: systolic murmur, diastolic murmur, rubs, gallop, clicks GI/Abdominal exam: Present: soft, normal bowel sounds. Absent: distended, te nderness, guarding, rebound, rigid Extremities exam: Present: normal inspection, full ROM, normal capillary refill. Absent: tenderness, pedal edema, joint swelling, calf tenderness Back exam: Present: normal inspection Neurological exam: Present: alert, oriented X3, CN II-XII intact Psychiatric exam: Present: normal affect, normal mood Skin exam: Present: warm, dry, intact, normal color. Absent: rash <Bryn Maravilla - Last Filed: 12/08/23 01:33> - General Exam Comments Initial Comments: Visual Physical Exam Vital signs reviewed General: Well-appearing, nontoxic, no acute distress. Head: Normocephalic, atraumatic Eyes: PERRLA, EOMI ENT: Airway patent Chest: Nonlabored breathing Skin: No visual rash, normal skin tone Neuro: Alert and oriented 3 Musculoskeletal: No gross abnormalities (Kena Messina) Course <RenitaBryn Devi - Last Filed: 12/08/23 01:33> Vital Signs 11/30/23 11/30/23 11/30/23 13:58 17:30 18:58 Temperature 99.2 F 98.1 F Pulse Rate 98 76 74 Respiratory 18 14 18 Rate Blood Pressure 124/84 115/74 115/68 O2 Sat by Pulse 99 99 98 Oximetry - Reevaluation(s) Reevaluation #1: Medical records reviewed (Bryn Maravilla) Reevaluation #2: Patient symptoms improved Patient has been shaking, having shaking episodes with concern for positive fevers and bacterial infection (Bryn Maravilla) Reevaluation #3: Patient informed of results and questions were answered (Bryn Maravilla) Reevaluation #4: Was pt. sent in by a medical professional or institution (, PA, BEHAVIORAL ANALYST, urgent care, hospital, or custodial...) When possible be specific @ -no Did you speak to anyone other than the patient for history (EMS, parent, family, police, friend...)? What history was obtained from this source @ -no Did you review nursing and triage notes (agree or disagree)? Why? @ -agree Are old charts reviewed (outside hosp., previous admission, EMS record, old EKG, old radiological studies, urgent care reports/EKG's, custodial records)? Report findings @ -yes Differential Diagnosis (chest pain, altered mental status, abdominal pain women, abdominal pain men, vaginal bleeding, weakness, fever, dyspnea, syncope, headache, dizziness, GI bleed, back pain, seizure, CVA, palpatations, mental he alth, musculoskeletal)? @ -prior EKG interpreted by me (3pts min.). @ -no X-rays interpreted by me (1pt min.). @ -no CT interpreted by me (1pt min.). @ -no U/S interpreted by me (1pt. min.). @ -Yes positive for IUP What testing was considered but not performed or refused? (CT, X-rays, U/S, lab s)? Why? @ -none What meds were considered but not given or refused? Why? @ -none Did you discuss the management of the patient with other professionals (professionals i.e. , PA, BEHAVIORAL ANALYST, lab, RT, psych nurse, social service assistant, director corporate security, teacher, retirement officer, case management rn)? Give summary @ -no Was smoking cessation discussed for >3mins.? @ -no Was critical care preformed (if so, how long)? @ -no Were there social determinants of health that impacted care today? How? (Homelessness, low income, unemployed, alcoholism, drug addiction, transportation, low edu. Level, literacy, decrease access to med. care, retirement, rehab)? @ -none Was there de-escalation of care discussed even if they declined (Discuss DNR or withdrawal of care, Hospice)? DNR status @ -no What co-morbidities impacted this encounter? (DM, HTN, Smoking, COPD, CAD, Cancer, CVA, ARF, Chemo, Hep., AIDS, mental health diagnosis, sleep apnea, morbid obesity)? @ -none Was patient admitted / discharged? Hospital course, mention meds given and route, prescriptions, significant lab abnormalities, going to OR and other pertinent info. @ -28 female to the ER for evaluation of severe nausea vomiting of . Likely Hg, patient given symptomatic control here in the ER feels well and can be discharged home Discharge Undiagnosed new problem with uncertain prognosis? @ -no Drug Therapy requiring intensive monitoring for toxicity (Heparin, Nitro, Insulin, Cardizem)? @ -no Were any procedures done? @ -no Diagnosis/symptom? @ -Hyperemesis, nausea vomiting in Acute, or Chronic, or Acute on Chronic? @ -Acute Uncomplicated (without systemic symptoms) or Complicated (systemic symptoms)? @ -Complicated Side effects of treatment? @ -no Exacerbation, Progression, or Severe Exacerbation? @ -exacerbation Poses a threat to life or bodily function? How? (Chest pain, [place], [place], pneumonia, PE, COPD, DKA, ARF, appy, cholecystitis, CVA, Diverticulitis, Homicidal, Suicidal, threat to staff... and all critical care pts) @ -no (Bryn Maravilla) Medical Decision Making <Kena Messina - Last Filed: 11/30/23 13:42> - Lab Data Result diagrams: 11/30/23 14:07 11/30/23 14:10 - Radiology Data Radiology results: report reviewed (Ultrasound positive for IUP), image reviewed <Bryn Maravilla - Last Filed: 12/08/23 01:33> - Medical Decision Making I performed the QuickNote portion of this chart. Signed Kena Messina PA-C. (Kena Messina) 28 female to ER with nausea vomiting in . Patient feels well here in the ER currently, symptoms are improving and patient can be discharged home (Bryn Maravilla) - Lab Data Lab Results 11/30/23 11/30/23 11/30/23 Range/Units 14:07 14:07 14:10 WBC 8.3 (3.8-10.6) k/uL RBC 4.30 (3.80-5.40) m/uL Hgb 13.3 (11.4-16.0) gm/dL Hct 39.9 (34.0-46.0) % MCV 92.7 (80.0-100.0) fL MCH 30.8 (25.0-35.0) pg MCHC 33.3 (31.0-37.0) g/dL RDW 12.2 (11.5-15.5) % Plt Count 252 (150-450) k/uL MPV 8.4 Neutrophils % 74 % Lymphocytes % 18 % Monocytes % 5 % Eosinophils % 1 % Basophils % 0 % Neutrophils # 6.2 (1.3-7.7) k/uL Lymphocytes # 1.5 (1.0-4.8) k/uL Monocytes # 0.4 (0-1.0) k/uL Eosinophils # 0.0 (0-0.7) k/uL Basophils # 0.0 (0-0.2) k/uL Sodium 139 (137-145) mmol/L Potassium 4.3 (3.5-5.1) mmol/L Chloride 108 H (98-107) mmol/L Carbon Dioxide 23 (22-30) mmol/L Anion Gap 8 mmol/L BUN 4 L (7-17) mg/dL Creatinine 0.43 L (0.52-1.04) mg/dL Est GFR (CKD-EPI)AfAm >90 (>60 ml/min/1.73 sqM) Est GFR (CKD-EPI)NonAf >90 (>60 ml/min/1.73 sqM) Glucose 95 (74-99) mg/dL Calcium 9.7 (8.4-10.2) mg/dL Phosphorus (2.5-4.5) mg/dL Magnesium (1.6-2.3) mg/dL Total Bilirubin 0.4 (0.2-1.3) mg/dL AST 21 (14-36) U/L ALT 18 (4-34) U/L Alkaline Phosphatase 69 (38-126) U/L Total Protein 7.1 (6.3-8.2) g/dL Albumin 4.4 (3.5-5.0) g/dL HCG, Quant 96587.8 mIU/mL Urine Color Colorless Urine Appearance Cloudy H (Clear) Urine pH 7.0 (5.0-8.0) Ur Specific [place] 1.006 (1.001-1.035) Urine Protein Negative (Negative) Urine Glucose (UA) Negative (Negative) Urine Ketones 1+ H (Negative) Urine Blood Negative (Negative) Urine Nitrite Negative (Negative) Urine Bilirubin Negative (Negative) Urine Urobilinogen <2.0 (<2.0) mg/dL Ur Leukocyte Esterase Small H (Negative) Urine RBC 1 (0-5) /hpf Urine WBC 1 (0-5) /hpf Ur Squamous Epith Cells 1 (0-4) /hpf Urine Bacteria Few H (None) /hpf Urine Mucus Rare H (None) /hpf 11/30/23 Range/Units 14:10 WBC (3.8-10.6) k/uL RBC (3.80-5.40) m/uL Hgb (11.4-16.0) gm/dL Hct (34.0-46.0) % MCV (80.0-100.0) fL MCH (25.0-35.0) pg MCHC (31.0-37.0) g/dL RDW (11.5-15.5) % Plt Count (150-450) k/uL MPV Neutrophils % % Lymphocytes % % Monocytes % % Eosinophils % % Basophils % % Neutrophils # (1.3-7.7) k/uL Lymphocytes # (1.0-4.8) k/uL Monocytes # (0-1.0) k/uL Eosinophils # (0-0.7) k/uL Basophils # (0-0.2) k/uL Sodium (137-145) mmol/L Potassium (3.5-5.1) mmol/L Chloride (98-107) mmol/L Carbon Dioxide (22-30) mmol/L Anion Gap mmol/L BUN (7-17) mg/dL Creatinine (0.52-1.04) mg/dL Est GFR (CKD-EPI)AfAm (>60 ml/min/1.73 sqM) Est GFR (CKD-EPI)NonAf (>60 ml/min/1.73 sqM) Glucose (74-99) mg/dL Calcium (8.4-10.2) mg/dL Phosphorus 3.5 (2.5-4.5) mg/dL Magnesium 2.1 (1.6-2.3) mg/dL Total Bilirubin (0.2-1.3) mg/dL AST (14-36) U/L ALT (4-34) U/L Alkaline Phosphatase (38-126) U/L Total Protein (6.3-8.2) g/dL Albumin (3.5-5.0) g/dL HCG, Quant mIU/mL Urine Color Urine Appearance (Clear) Urine pH (5.0-8.0) Ur Specific [place] (1.001-1.035) Urine Protein (Negative) Urine Glucose (UA) (Negative) Urine Ketones (Negative) Urine Blood (Negative) Urine Nitrite (Negative) Urine Bilirubin (Negative) Urine Urobilinogen (<2.0) mg/dL Ur Leukocyte Esterase (Negative) Urine RBC (0-5) /hpf Urine WBC (0-5) /hpf Ur Squamous Epith Cells (0-4) /hpf Urine Bacteria (None) /hpf Urine Mucus (None) /hpf Disposition <Kena Messina - Last Filed: 11/30/23 13:42> Is patient prescribed a controlled substance at d/c from ED?: No Time of Disposition: 18:30 <Bryn Maravilla - Last Filed: 12/08/23 01:33> Clinical Impression: Nausea & vomiting, Third trimester , Gastroenteritis, Hyperemesis gravidarum Disposition: HOME SELF-CARE Condition: Good Instructions (If sedation given, give patient instructions): Acute Nausea and Vomiting (ED) Referrals: Hay Hi DO [Primary Care Provider] - 1-2 days
[2023-11-30 14:40] LABS: Basophils % (A) 0 %; Eosinophils % (A) 1 %; HCT 39.9 % (34.0-46.0); HGB 13.3 gm/dL (11.4-16.0); Lymphocytes # (A) 1.5 k/uL (1.0-4.8); Lymphocytes % (A) 18 %; MCH 30.8 pg (25.0-35.0); MCHC 33.3 g/dL (31.0-37.0); MCV 92.7 fL (80.0-100.0); Mean Platelet Volume 8.4; Monocytes # (A) 0.4 k/uL (0-1.0); Monocytes % (A) 5 %; Neutrophils # (A) 6.2 k/uL (1.3-7.7); Neutrophils % (A) 74 %; Platelet Count 252 k/uL (150-450); RDW 12.2 % (11.5-15.5); WBC 8.3 k/uL (3.8-10.6)
[2023-11-30 15:22] LABS: ALT 18 U/L (4-34); AST 21 U/L (14-36); African American GFR (CKD) >90 (>60 ml/min/1.73 sqM); Albumin 4.4 g/dL (3.5-5.0); Alkaline Phosphatase 69 U/L (38-126); Anion Gap 8 mmol/L; Blood Urea Nitrogen 4 mg/dL (7-17); Calcium 9.7 mg/dL (8.4-10.2); Carbon Dioxide 23 mmol/L (22-30); Chloride 108 mmol/L (98-107); Glucose 95 mg/dL (74-99); Non-African American GFR(CKD) >90 (>60 ml/min/1.73 sqM); Potassium 4.3 mmol/L (3.5-5.1); Sodium 139 mmol/L (137-145); Total Bilirubin 0.4 mg/dL (0.2-1.3); Total Protein 7.1 g/dL (6.3-8.2)
[2023-11-30] MEDS: ONDANSETRON 4 MG/2 ML VIAL IVP STA (16:13)
[2023-11-30] MEDS: SODIUM CHLORIDE 0.9% 1,000 ML IV STA ×2 (16:13→18:41)
[2023-11-30] MEDS: SODIUM CHLORIDE 0.9% 500 ML 500 ML IV STA (16:13)
[2023-11-30] MEDS: diphenhydrAMINE 50 MG/ML 1 ML VIAL IVP STA (16:13)
[2023-11-30] MEDS: PYRIDOXINE 100 MG/ML 1 ML VIAL IVP STA (16:19)
[2023-11-30 16:23] LABS: HCG,Quantitative Serum 73147.8 mIU/mL
[2023-11-30 17:22] LABS: Magnesium 2.1 mg/dL (1.6-2.3); Phosphorus 3.5 mg/dL (2.5-4.5)
--- NOTE | 2023-11-30 17:51 | US ---
EXAMINATION TYPE: Transabdominal DATE OF EXAM: 11/30/2023 5:24 PM COMPARISON: NONE CLINICAL INDICATION: Female, 28 years old with history of preg; N/V. No bleeding or cramping EXAM PERFORMED: Transabdominal (TA) EXAM MEASUREMENTS: GESTATIONAL AGE / DATING Physician Established: Not yet established ( Dates by LMP: 10/10/23 (7 weeks/2 days) EDC: 07/16/24 Dates by First Scan: No previous this is first scan Dates by Current Scan for: (6 weeks/4 days) EDC: 07/21/24 MATERNAL ANATOMY Uterus: 10.3 x 6.9 x 5.4cm Right Ovary: 3.0 x 2.4 x 2.3cm Left Ovary: 3.3 x 2.6 x 2.1cm Post CDS / Adnexa: wnl Presence of free fluid: No Presence of corpus luteal cyst: Yes in rt ovary measuring 2.2 x 2.1 x 1.5cm Presence of subchorionic bleed: Yes measuring 2.2 x 1.0 x 0.9cm GESTATION / SURVEY CRL: 0.74cm (6 weeks/4 days) MSD: 2.08cm (6 weeks/4 days) Yolk Sac (normal less than 6mm): 3.8mm Heart Rate: 141 bpm Rhythm: Normal IUP: Viable IUP Date of LMP: 10/10/23 Beta HcG (if available): 02539.8 Single live IUP seen measuring 6 weeks 4 days IMPRESSION: 1. Single viable intrauterine .
[2023-11-30 18:02] VITALS: TEMP 98.1
[2023-11-30 18:27] LABS: Appearance,Urine Cloudy (Clear); Bacteria,Urine Few /hpf; Bilirubin,Urine Negative (Negative); Blood,Urine Negative (Negative); Color,Urine Colorless; Glucose,Urine (UA) Negative (Negative); Ketones,Urine 1+ (Negative); Leukocyte Esterase,Urine Small (Negative); Mucus,Urine Rare /hpf; Nitrite,Urine Negative (Negative); Protein,Urine Negative (Negative); RBC,Urine 1 /hpf (0-5); Specific Gravity,Urine 1.006 (1.001-1.035); Squamous Epithelial Cell,Urine 1 /hpf (0-4); Urobilinogen,Urine <2.0 mg/dL (<2.0); WBC,Urine 1 /hpf (0-5)
[2023-11-30 19:01] VITALS: BP 115/68; PULSE 74; RESP 18
== END 2023-11-30 18:59 | disposition home or self-care (01) ==
LOC: EC 13:21
DX: O99.611 Diseases of the digestive system complicating pregnancy, first trimester (principal); K52.9 Noninfective gastroenteritis and colitis, unspecified; Z86.59 Personal history of other mental and behavioral disorders; Z91.030 Bee allergy status; Z3A.01 Less than 8 weeks gestation of pregnancy
CPT/HCPCS: 99284; 96374; 96375 ×2; 96361 ×3; 36415; 80053; 83735; 84100; 85025; 81001; 84702; 87040; 76801; J1200; J3415; J2405

== ENCOUNTER → 2024-02-08 | Outpatient (CLI) | payer MEDICAID ==
[2024-02-08 14:46] LABS: Basophils # (A) 0.05 X 10*3/uL (0.00-0.10); Basophils % (A) 0.4 %; Eosinophils # (A) 0.11 X 10*3/uL (0.04-0.35); Eosinophils % (A) 0.9 %; HCT 36.2 % (37.2-46.3); HGB 11.9 g/dL (12.0-15.0); Lymphocytes # (A) 2.41 X 10*3/uL (0.90-5.00); Lymphocytes % (A) 18.7 %; MCHC 32.9 g/dL (32.0-37.0); MCV 91.2 FL (80.0-97.0); Mean Platelet Volume 11.4 FL (9.5-12.2); Monocytes # (A) 0.74 X 10*3/uL (0.20-1.00); Monocytes % (A) 5.7 %; NRBC Per 100 WBC 0 X 10*3/uL (0.00-0.01); Neutrophils # (A) 9.53 X 10*3/uL (1.80-7.70); Neutrophils % (A) 73.7 %; Platelet Count 280 X 10*3/uL (140-440); RBC 3.97 X 10*6/uL (4.10-5.20); RDW 12.7 % (11.5-14.5); WBC 12.92 X 10*3/uL (4.50-10.00)
[2024-02-08 15:02] LABS: % Iron Saturation 18.14 (12.00-45.00); ALT 16 U/L (8-44); AST 16 U/L (13-35); Albumin 3.9 g/dL (3.8-4.9); Albumin/Globulin Ratio 1.62 Ratio (1.60-3.17); Alkaline Phosphatase 73 U/L (41-126); BUN/Creat Ratio 13.25 Ratio (12.00-20.00); Blood Urea Nitrogen 5.3 mg/dL (9.0-27.0); Calcium 9.4 mg/dL (8.7-10.3); Carbon Dioxide 19.4 mmol/L (21.6-31.8); Chloride 103 mmol/L (96-109); Ferritin 24.6 ng/mL (10.0-291.0); Globulin 2.4 g/dL (1.6-3.3); Glucose 76 mg/dL (70-110); Hepatitis B Surface Antigen Nonreactive (Nonreactive); Iron 82 UG/DL (50-170); LDL Cholesterol,Calculated 91.5 mg/dL (0.0-131.0); Lipase 23 U/L (14-63); Potassium 4.3 mmol/L (3.5-5.5); Sodium 136 mmol/L (135-145); Total Bilirubin <0.2 mg/dL (0.3-1.2); Total Iron Binding Capacity 452 UG/DL (228-460); Total Protein 6.3 g/dL (6.2-8.2)
[2024-02-08 19:40] LABS: HIV 2 AB Non-Reactive (Non-Reactive); HIV AB P24 Non-Reactive (Non-Reactive); HIV P24 AG Non-Reactive (Non-Reactive)
== END | disposition home or self-care (01) ==
LOC: LABWHC1 10:44
PROVIDERS: ATTEND Internal Medicine
DX: Z34.82 Encounter for supervision of other normal pregnancy, second trimester (principal); Z3A.00 Weeks of gestation of pregnancy not specified; R10.9 Unspecified abdominal pain; Z14.8 Genetic carrier of other disease
CPT/HCPCS: 36415; 80053; 80061; 82728; 83540; 83550; 83690; 84443; 85025; 86762; 86780; 86850; 86900; 86901; 87086; 87340; 87390

== ENCOUNTER 2024-07-08 12:57 | Inpatient (IN) | payer MEDICAID, OTHER ==
[2024-07-08] MEDS ORDERED: OXYTOCIN 10 UNIT/ML 1 ML VIAL IM PRN (14:26)
[2024-07-08] MEDS ORDERED: miSOPROStoL 200 MCG TAB PO PRN (14:26)
[2024-07-08] MEDS ORDERED: miSOPROStoL 200 MCG TAB RECTAL PRN (14:26)
[2024-07-08] MEDS ORDERED: METHYLERGONOVINE 0.2 MG/ML 1 ML AMP IM PRN (14:26)
[2024-07-08] MEDS ORDERED: CARBOPROST TROMETHAMINE 250 MCG/ML 1 ML AMP IM PRN (14:26)
[2024-07-08] MEDS ORDERED: LIDOCAINE 0.5% (PF) 5 MG/ML (50 ML SDV) SQ PRN (14:26)
[2024-07-08] MEDS ORDERED: TERBUTALINE 1 MG/ML VIAL SQ PRN (14:26)
[2024-07-08] MEDS ORDERED: TRANEXAMIC 1,000 MG/100ML-NACL 1,000 MG in EMPTY BAG 1 BAG IV PRN (14:26)
[2024-07-08] MEDS ORDERED: OXYTOCIN 30 UNITS/500 ML NS 30 UNIT in SALINE 1 500ML.BAG IV SCH (14:30)
[2024-07-08] MEDS: LACTATED RINGERS 1,000 ML IV SCH (15:00)
[2024-07-08 15:02] LABS: Glucose,Whole Blood 82 mg/dL (70-110)
[2024-07-08 15:20] LABS: Basophils % (A) 0 %; Eosinophils # (A) 0.2 k/uL (0-0.7); Eosinophils % (A) 1 %; HCT 32.9 % (34.0-46.0); HGB 10.9 gm/dL (11.4-16.0); Lymphocytes # (A) 1.1 k/uL (1.0-4.8); Lymphocytes % (A) 5 %; MCH 27.7 pg (25.0-35.0); MCV 83.8 fL (80.0-100.0); Mean Platelet Volume 8.6; Monocytes # (A) 0.6 k/uL (0-1.0); Monocytes % (A) 3 %; Neutrophils # (A) 17.9 k/uL (1.3-7.7); Neutrophils % (A) 90 %; Platelet Count 294 k/uL (150-450); RBC 3.93 m/uL (3.80-5.40); RDW 13.7 % (11.5-15.5)
[2024-07-08] MEDS ORDERED: SODIUM CHLORIDE 0.9% 250 ML BAG ONE (15:33)
[2024-07-08] MEDS ORDERED: fentaNYL (PF) 50 MCG/ML 5 ML AMP ONE (15:33)
[2024-07-08] MEDS ORDERED: ROPIVACAINE 5 MG/ML 30 ML VIAL ONE (15:33)
[2024-07-08] MEDS: OXYTOCIN 30 UNITS/500 ML NS 30 UNIT in SALINE 1 500ML.BAG IV SCH (17:06)
[2024-07-08] MEDS ORDERED: diphenhydrAMINE 50 MG/ML 1 ML VIAL IVP PRN ×2 (17:17)
[2024-07-08] MEDS ORDERED: ZOLPIDEM 5 MG TAB PO PRN (17:17)
[2024-07-08] MEDS ORDERED: SIMETHICONE 80 MG CHEWABLE PO PRN (17:17)
[2024-07-08] MEDS ORDERED: diphenhydrAMINE 50 MG CAP PO PRN (17:17)
[2024-07-08] MEDS ORDERED: HYDROCORTISONE 2.5% RECTAL CREAM 30 GM TUBE RECTAL PRN (17:17)
[2024-07-08] MEDS ORDERED: LANOLIN CREAM 1 GM TUBE TOPICAL PRN (17:17)
[2024-07-08] MEDS ORDERED: diphenhydrAMINE 25 MG CAP PO PRN (17:17)
--- NOTE | 2024-07-08 17:22 | P.HPOB ---
History of Present Illness H&P Date: 07/08/24 Chief Complaint: labor 29 year old presents at 38 weeks 6 days in labor. Her cervix changed from 4 to 5/90/-2. she was bebe every few minutes. heart tones 140, category 1. Review of Systems All systems: negative Constitutional: Denies chills, Denies fever Eyes: denies blurred vision, denies pain Ears, nose, mouth and throat: Denies headache, Denies sore throat Cardiovascular: Denies chest pain, Denies shortness of breath Respiratory: Denies cough Gastrointestinal: Denies abdominal pain, Denies diarrhea, Denies nausea, Denies vomiting Genitourinary: Denies dysuria, Denies hematuria Musculoskeletal: Denies myalgias Integumentary: Denies pruritus, Denies rash Neurological: Denies numbness, Denies weakness Psychiatric: Denies anxiety, Denies depression Endocrine: Denies fatigue, Denies weight change Past Medical History Past Medical History: Syncope Additional Past Medical History / Comment(s): enlarged lymph nodes. OB history: has had one vaginal delivery. This is her second and she did have care. O+, abs neg, Rub imm, RPR NR, Hep B and C neg, GBS neg. History of Any Multi-Drug Resistant Organisms: None Reported Past Surgical History: No Surgical Hx Reported Additional Past Surgical History / Comment(s): D&C March 2017, wisdom teeth removed Past Anesthesia/Blood Transfusion Reactions: No Reported Reaction Past Psychological History: Anxiety Smoking Status: Never smoker Past Alcohol Use History: None Reported Past Drug Use History: None Reported - Past Family History Mother Family Medical History: Cancer Additional Family Medical History / Comment(s): CML Medications and Allergies Home Medications Medication Instructions Recorded Confirmed Type Magnesium Oxide [Magnesium] 500 mg PO DAILY 07/08/24 07/08/24 History Allergies Allergy/AdvReac Type Severity Reaction Status Date / Time bee venom protein (honey bee) Allergy Anaphylaxis Verified 11/30/23 14:03 Exam Osteopathic Statement: *. No significant issues noted on an osteopathic structural exam other than those noted in the History and Physical/Consult. Intake and Output 07/08/24 07/08/24 07/08/24 06:59 14:59 22:59 Other: Weight 74.843 kg Heart: Regular rate and rhythm Lungs: Clear to auscultation bilaterally Abdomen: Soft, nontender Extremities: Negative Homans sign Results Result Diagrams: 07/08/24 15:05 Abnormal Lab Results - Last 24 Hours (Table) 07/08/24 Range/Units 15:05 WBC 20.0 H (3.8-10.6) k/uL Hgb 10.9 L (11.4-16.0) gm/dL Hct 32.9 L (34.0-46.0) % Neutrophils # 17.9 H (1.3-7.7) k/uL Assessment and Plan (1) Normal labor Current Visit: Yes Status: Acute Code(s): O80 - ENCOUNTER FOR FULL-TERM UNCOMPLICATED DELIVERY; Z37.9 - OUTCOME OF DELIVERY, UNSPECIFIED SNOMED Code(s): 39240877 Plan: 1. admit to [facility] 2. expectant management 3 anticipate normal vaginal delivery
--- NOTE | 2024-07-08 17:23 | P.PROBDLV ---
Vaginal Delivery Note - . Vaginal Delivery Note: 29 year old presents at 38 weeks 6 days in labor. Her cervix changed from 4 to 5/90/-2. she was bebe every few minutes. heart tones 140, category 1.Patient was [facility] and given an epidural for pain control. Spontaneous rupture of membranes occurred at 1627 clear fluid noted. Her cervix was also completely dilated at 1627. She labored down and then pushed and delivered a viable female over intact perineum under epid ural anesthesia at 1704. Head delivered OA, anterior shoulder delivered gentle downward guidance for by posterior shoulder and rest of body. Nose and mouth bulb suctioned, cord clamped and cut, infant placed on mother's abdomen. Apgars 9, 9, weight 6 pounds. Placenta delivered spontaneously, intact with three- vessel cord at 1506. Vagina, cervix, perineum inspected. No lacerations noted. Estimated blood loss 50 mL. Mother and baby in stable condition.
[2024-07-08] MEDS: BENZOCAINE/MENTHOL SPRAY 1 GM/SPRAY AEROSOL TOPICAL PRN (17:46)
[2024-07-08] MEDS: IBUPROFEN 800 MG TAB PO SCH (22:00)
[2024-07-08] MEDS: SENNOSIDES-DOCUSATE SODIUM 1 EACH TAB PO SCH (22:04)
[2024-07-09] MEDS: ACETAMINOPHEN TAB 500 MG TAB PO SCH (04:45)
[2024-07-09 06:25] LABS: Basophils % (A) 0 %; Eosinophils # (A) 0.1 k/uL (0-0.7); Eosinophils % (A) 1 %; HCT 29.8 % (34.0-46.0); Hypochromasia Slight; Lymphocytes % (A) 14 %; MCH 26.9 pg (25.0-35.0); MCHC 31.3 g/dL (31.0-37.0); Mean Platelet Volume 8.3; Monocytes % (A) 7 %; Neutrophils # (A) 11.2 k/uL (1.3-7.7); Neutrophils % (A) 76 %; Platelet Count 262 k/uL (150-450); RBC 3.47 m/uL (3.80-5.40); RDW 13.5 % (11.5-15.5); WBC 14.7 k/uL (3.8-10.6)
[2024-07-09 06:31] LABS: HGB 9.3 gm/dL (11.4-16.0)
[2024-07-09 09:44] VITALS: RESP 17
--- NOTE | 2024-07-09 12:33 | P.DS ---
Providers Date of admission: 07/08/24 14:28 Expected date of discharge: 07/09/24 Attending physician: Mary Abdalla MD Primary care physician: Stated None Hospital Course: Ms. Ren is a 29 year old now PPD#1 s/p normal spontaneous vaginal delivery. Her was complicated by gestational diabetes, for which she should complete a 2 hour GTT . Her labor and delivery were uncomplicated. The patient is doing well this morning and had no acute events overnight. She has no complaints this morning. She reports minimal lochia, passing flatus, voiding without difficulty, ambulating, and eating/drinking with out nausea or vomiting. Infant doing well at bedside, is going well, patient states she already has a pump. She denies chest pain, shortness of breathing, fevers, or chills overnight. She denies pain or swelling in the legs. restrictions are reviewed with the patient including pelvic rest for 6 weeks. The patient is encouraged to call the office if she experiences any heavy bleeding, foul-smelling discharge, breast complaints, or any if she has any other concerns. She will follow up in the office with in 6 weeks for exam. She requests a prescription for Motrin. All questions are answered. Assessment: 29 year old now PPD#1 s/p Patient Condition at Discharge: Good Plan - Discharge Summary Discharge Rx Participant: Yes New Discharge Prescriptions: New Ibuprofen [Motrin] 600 mg PO Q6HR PRN #30 tab PRN Reason: Mild Pain (Scale 1 To 3) No Action Magnesium Oxide [Magnesium] 500 mg PO DAILY Discharge Medication List Magnesium Oxide [Magnesium] 500 mg PO DAILY 07/08/24 [History] Ibuprofen [Motrin] 600 mg PO Q6HR PRN #30 tab 07/09/24 [Rx] Follow up Appointment(s)/Referral(s): Mary Abdalla MD [STAFF PHYSICIAN] - 6 Weeks ( 08/21/24 @ 1:45pm) Activity/Diet/Wound Care/Special Instructions: Instructions 1. Do not begin any exercise program for 3 weeks. 2. Do not resume sexual relations for 6 weeks or longer if uncomfortable. 3. You may take tub baths or showers at any time. 4. You may use tampons if desired after 6 weeks. 5. Keep any areas repaired with stitches clean and dry. 6. If you are not nursing, wear a good fitting, supportive bra during the day and limit fluid intake for at least 1 week to prevent breast engorgement. 7. Call the office, , within the next week to make appointment for your 6 week checkup if it has not already been made. 8. Report any of the following occurrences to the doctor promptly: a. Heavy, excessive bleeding b. Chills, fever c. Burning or frequency of urination d. Pain or redness and breasts if nursing e. Increasing pain or swelling of vulva (stitches). In addition to the above instructions, the following additional should be followed: 1. No heavy lifting or straining (exercising) until after 6 week checkup. 2. Keep abdominal incision clean and dry: You may wear a dressing if more comfortable. 3. Make office appointment for 2 weeks after delivery date. Discharge Disposition: HOME SELF-CARE
[2024-07-09 16:25] VITALS: BP 128/81; PULSE 98; TEMP 97.7
== END 2024-07-09 17:30 | disposition home or self-care (01) | DRG 807 ==
LOC: FBPOP 12:57 → 4FBP 14:28
PROVIDERS: ADMIT Obstetrics & Gynecology; ATTEND Obstetrics & Gynecology
PROC: 10E0XZZ Delivery of Products of Conception, External Approach (ICD-10-PCS; principal; 2024-07-08)
DX: O24.429 Gestational diabetes mellitus in childbirth, unspecified control (principal); Z37.0 Single live birth; Z3A.38 38 weeks gestation of pregnancy
CPT/HCPCS: 59025; 85025; 86850; 86900; 86901; 99213